=== PATIENT | male | born 1995 | race Two or more races ===

== ENCOUNTER 2018-12-10 23:39 | Emergency (ER) | payer SELFPAY ==
[~2018-12-10] VITALS: Ht 170.2 cm; Wt 72.6 kg
[2018-12-10 23:51] VITALS: BP 113/77
--- NOTE | 2018-12-11 01:38 | NUR ---
PATIENT GIVEN SANDWICH AND JUICE.
== END 2018-12-11 02:49 | disposition home or self-care (01) ==
LOC: ER 23:40
DX: Z13.89 Encounter for screening for other disorder (principal)
CPT/HCPCS: 82962-TC